=== PATIENT | female | born 1975 | race Two or more races ===

== ENCOUNTER 2019-02-26 12:20 | Emergency (ER) | payer OTHER ==
[~2019-02-26] VITALS: Ht 162.6 cm; Wt 68.0 kg
[2019-02-26 15:46] VITALS: BP 107/76
[2019-02-26] MEDS ORDERED: SODIUM CHLORIDE 0.9% 1,000 ML IV ONE (17:21)
[2019-02-26 17:37] LABS: BASOPHILS % 0.9 % (0.0-2.0); EOSINOPHILS % 1.1 % (0.0-5.0); HEMATOCRIT. 42.8 % (36.0-48.0); HEMOGLOBIN. 14.4 g/dL (12.0-16.0); LYMPHOCYTES % 28.8 % (20.0-50.0); MEAN CORPUSCULAR VOLUME 83.2 fL (81.0-99.0); MONOCYTES % 3.6 % (2.0-8.0); NEUTROPHILS % 65.6 % (40.0-76.0); PLATELET 238 x1000/uL (130-400); RED BLOOD CELL COUNT 5.15 mill/uL (4.2-5.4); RED CELL DISTRIBUTION WIDTH 13.2 % (11.6-14.6)
[2019-02-26 17:44] LABS: CHLORIDE 102 mEq/L (98-107)
[2019-02-26 17:50] LABS: BETA HYDROXYBUTYRATE 0.2 mMol/L (0.0-0.3)
[2019-02-26] MEDS ORDERED: ACETAMINOPHEN 325MG TABLET PO ONE (18:30)
[2019-02-26] MEDS ORDERED: INSULIN REGULAR (HUMULIN R) 300UNITS/3ML SUBCUT ONE (19:00)
== END 2019-02-26 19:38 | disposition home or self-care (01) ==
LOC: ER 12:20
DX: E11.65 Type 2 diabetes mellitus with hyperglycemia (principal); Z98.51 Tubal ligation status
CPT/HCPCS: 36415; 80053; 82010; 82962; 83690; 84443; 84484; 85025; 96360; 96372; 99283; J1815; J7030